=== PATIENT | female | born 1965 | race Caucasian/White ===

== ENCOUNTER → 2016-08-20 | Outpatient (CLI) | payer MEDICARE, OTHER ==
--- NOTE | 2016-08-20 09:36 | CT ---
EXAMINATION TYPE: CT ankle RT wo con DATE OF EXAM: 08/20/2016 8:19 AM COMPARISON: NONE HISTORY: Displaced trimalleolar fx of Rt lower leg CT DLP: 255.3 mGycm Automated exposure control for dose reduction was used. FINDINGS: As per the patient history a trimalleolar ankle fracture is seen. The medial malleolus fracture is mi ldly comminuted with a single subcentimeter second fragment. The larger dominant index fragment of th e medial malleolus is displaced 7 mm medially into the tibiotalar joint. The talus is subluxed latera lly within the tibiotalar joint without evidence of laila dislocation. The distal fibular fracture is also comminuted and only minimally displaced with the distal fracture fragment displaced 4 mm dorsal ly and 1 mm laterally. Few osseous fragments are present at the anterior lateral tibiotalar joint. Th e posterior malleolus fracture is also mildly comminuted and only minimally displaced with the fractu re fragment displaced superiorly approximately 4 mm. No calcaneal fractures are evident. Likely sclerotic bone island is seen within the anterior talus. E xtensive subcutaneous edema is seen around the ankle joint and midfoot as well as a small joint effus ion. There is a small supra calcaneal heel spur. Achilles tendon is intact. Tendons of the lateral, m edial, posterior, and anterior compartment appear intact although MRI is better suited for analysis. IMPRESSION: 1. COMMINUTED TRIMALLEOLAR ANKLE FRACTURE WITH LATERAL SUBLUXATION OF THE TALUS . 2. NO ADDITIONAL FRACTURE IS SEEN. 3. EXTENSIVE SOFT TISSUE SWELLING AROUND THE ANKLE JOINT AND MIDFOOT WITH SMALL JOINT EFFUSION. THE T ENDONS WITHIN THE ANTERIOR, MEDIAL, POSTERIOR, AND LATERAL COMPARTMENT APPEAR GROSSLY INTACT ALTHOUGH MRI WOULD BE BETTER SUITED FOR ANALYSIS.
== END | disposition home or self-care (01) ==
LOC: RADCTMAIN 07:37
PROVIDERS: ATTEND Orthopaedic Surgery
DX: S82.851A Displaced trimalleolar fracture of right lower leg, initial encounter for closed fracture (principal); S93.01XA Subluxation of right ankle joint, initial encounter; M25.471 Effusion, right ankle; M79.89 Other specified soft tissue disorders

== ENCOUNTER 2016-08-27 13:50 | Day surgery (SDC) | payer MEDICARE, OTHER ==
[2016-08-26 10:29] VITALS: BMI 28.0
[~2016-08-27 13:50] MED LIST: CLINDAMYCIN 900 MG in DEXTROSE 5% IN WATER 50 ML IVPB ONE; DEXAMETHASONE SOD PHOSPHATE 10 MG/ML 1 ML VIAL IV ONE; HYDROmorphone 1 MG/ML 1 ML SYRINGE IVP PRN; LACTATED RINGERS 1,000 ML IV SCH; MIDAZOLAM 2 MG/2 ML VIAL IV PRN; ONDANSETRON 4 MG/2 ML VIAL IVP ONE; SCOPOLAMINE 1.5MG/72HR PATCH TRANSDERM ONE
[2016-08-27] MEDS ORDERED: LIDOCAINE 1% 20 ML VIAL (10MG/ML) FOR IV START INTRADERMA ONE (14:23)
[2016-08-27 14:37] LABS: Glucose,Whole Blood 93 mg/dL (75-99)
[2016-08-27 14:44] LABS: Basophils # (A) 0.1 k/uL (0-0.2); Basophils % (A) 1 %; CH 32.7; CHCM 32.8; Eosinophils # (A) 0.5 k/uL (0-0.7); Eosinophils % (A) 5 %; HCT 39.1 % (34.0-46.0); HDW 2.18; HGB 13.1 gm/dL (11.4-16.0); Luc # (Auto) 0.11; Luc % (Auto) 1; Lymphocytes # (A) 1.7 k/uL (1.0-4.8); Lymphocytes % (A) 17 %; MCH 33.6 pg (25.0-35.0); MCHC 33.5 g/dL (31.0-37.0); MCV 100.1 fL (80.0-100.0); Mean Platelet Volume 7.3; Monocytes # (A) 0.3 k/uL (0-1.0); Monocytes % (A) 3 %; Neutrophils % (A) 72 %; RDW 13.1 % (11.5-15.5); WBC 9.7 k/uL (3.8-10.6); WBC (Perox) 9.81
[2016-08-27] MEDS: fentaNYL (PF) 50 MCG/ML 2 ML AMP IV ONE ×2 (15:45→16:41)
[2016-08-27] MEDS ORDERED: PROPOFOL 10 MG/ML 20 ML VIAL IV ONE (17:36)
[2016-08-27] MEDS ORDERED: KETAMINE 10 MG/ML 20 ML VIAL ONE (17:36)
[2016-08-27] MEDS ORDERED: HYDROmorphone (PF) 1 MG/ML ONE (17:36)
[2016-08-27] MEDS ORDERED: fentaNYL (PF) 50 MCG/ML 2 ML AMP ONE (17:36)
[2016-08-27] MEDS ORDERED: MIDAZOLAM 2 MG/2 ML VIAL ONE (17:36)
[2016-08-27] MEDS ORDERED: LIDOCAINE 1% INJ 10MG/ML (20 ML MDV) ONE (17:36)
[2016-08-27] MEDS ORDERED: CLINDAMYCIN 600 MG in SODIUM CHLORIDE 0.9% 1,000 ML IRRIGATION ONE (18:08)
[2016-08-27] MEDS ORDERED: LACTATED RINGERS 1,000 ML IV ONE (18:27)
[2016-08-27] MEDS ORDERED: NALOXONE 0.4 MG/ML 1 ML VIAL IV PRN (19:34)
[2016-08-27] MEDS ORDERED: HYDROmorphone 1 MG/ML 1 ML SYRINGE IVP PRN (19:34)
[2016-08-27] MEDS ORDERED: DIAZEPAM 5 MG TAB PO PRN (19:34)
[2016-08-27] MEDS ORDERED: MAGNESIUM HYDROXIDE 2,400 MG/10 ML CUP PO PRN (19:34)
[2016-08-27] MEDS ORDERED: oxyCODONE-APAP 10-325MG 1 EACH TAB PO PRN (19:37)
[2016-08-27 19:39] VITALS: RESP 16; TEMP 97.1
--- NOTE | 2016-08-27 19:58 | P.OP ---
Date of Procedure: 08/27/16 Preoperative Diagnosis: 1. Closed right trimalleolar ankle fracture 2. Current every day cigarette smoker Postoperative Diagnosis: Same Procedure(s) Performed: 1. Open reduction and internal fixation of right trimalleolar ankle fracture ( open reduction and internal fixation of lateral and medial malleolus, nonoperative management of posterior malleolus fracture) 2. Manual application of joint stress by physician for radiography, right ankle Anesthesia: MERA Surgeon: Donald Gordon Sports Physiologist #1: Susie Vo Estimated Blood Loss (ml): 50 IV fluids (ml): 1,000 Pathology: none sent Condition: stable Disposition: PACU Indications for Procedure: The patient is a 51-year-old female with a medical history significant for smoking a pack of cigarettes a day. She sustained a fall just about 2 weeks ago resulting in a closed right trimalleolar ankle fracture. She presented to my office and was placed in a splint. A computed tomography scan was ordered to assess the posterior malleolus. We discussed treatment of unstable ankle fractures with surgery. I recommended operative fixation of her medial and lateral malleolus. We discussed potential risks application of surgery including but not limited to risks from anesthesia, risk of superficial infection, risk of deep infection, risk of delayed wound healing, risk of wound necrosis, risk of damage to local sensory nerves resulting in temporary or permanent numbness, risk of complex regional pain syndrome, risk of fracture nonunion, risk of fracture malunion, risk of displacement of her hardware postoperatively, risk of symptomatic hardware, risk of chronic pain, risk of chronic swelling, risk of need for further surgery, risk of posterior medical arthritis, risk of generalized to satisfaction of surgery and possibly loss of life or limb. The patient understands that she is at a much higher risk of having a complication due to her current smoking. She voiced her understanding this and signed a consent form to go forward with surgery. Description of Procedure: The patient was identified in preoperative holding and the correct right leg was marked with my initials. I reviewed the consent form with the patient and her family. All their questions were answered. In preoperative holding and popliteal and saphenous block was placed by anesthesia. She was then brought back to the operating room and transferred on the operating room table. An anesthetic was administered. She was positioned on the operating table and a tourniquet was applied the proximal aspect of the right thigh. Her left leg was secured to the operating room table with bone foam and tape. A bone foam bump was placed under her right buttock. A ramp was placed under her right leg. The patient's right leg was then prepped and draped in the standard sterile fashion. Prior to starting surgery timeout was performed identifying the correct operative extremity and procedure. Preoperative antibiotics were administered. The patient's leg was then elevated exsanguinated with an Esmarch bandage and the tourniquet was inflated to 250 mmHg. A longitudinal incision was marked out with a marking pen centered over the lateral malleolus. Skin incision was made to 15 blade scalpel. Dissection was carried down carefully to the subcu tissue and his tissue with tenotomy scissors to the periosteum overlying the distal fibula. The periosteum was raised off lateral aspect of the distal fibula and the fracture site was exposed. Consolidating hematoma and early callus was sharply debrided. Once the fracture site was debrided and gentle reduction was performed using longitudinal traction and direct manipulation of the distal fragment. Once the fracture was reduced the reduction was held with a akrfr-ot-nsets reduction clamp. On inspection the posterior spike keyed into the proximal fragment and the fibula appeared to be anatomically reduced. C-arm was brought in to verify the reduction. The fibula appeared to be out to length and there was no widening of the medial clear space. A 2.7 mm drill bit was used to create a gliding hole in the anterior cortex the proximal fragment a 2.0 mm drill bit was used to generate a threaded hole in the posterior cortex the distal fragment. A fully threaded 2.7 mm lag screws placed across the fracture generating excellent compression. The wsxjy-hm-hxwne reduction clamp was removed and the reduction held. A precontoured locking fibular plate was then placed over the lateral aspect of the fibula and its position was verified using fluoroscopy. Once the right was a neck supple position a 35 nonlocking screws placed just proximal to the fracture bring the plate down to bone. I then placed a 35 screw in the most proximal hole of the plate to make sure the plate was centered on the fibula. I then placed a 2.7 mm screw in the most distal hole of the plate to help bring the plate down to bone distally. I then proceeded to place 4 locking screws through the distal plate into the distal fragment. A third 3.5 mm screw was placed proximal to the fracture. C-arm was brought in to verify position of the hardware. Attention was then turned to the medial malleolus. A longitudinal incision was made centered over the medial malleolus Pritzker incision made a 50 but scalpel dissection was carried down carefully through subcutaneous tissue to the periosteum over the medial malleolus. Periosteum was incised longitudinally in line with the skin incision. The fracture site was sharply debrided of early callus and hematoma. The joint was looked open and visualized. There is a small osteochondral fragment in the joint that was removed. Once the fracture site was adequately debrided a 2.0 mm drill bit was used to create a unicortical hole in the metaphysis of the distal tibia. 1 corky of a point-to- point reduction clamp was placed in this hole in the second corky was centered on the tip of the medial malleolus. I gently reduced and manipulated the medial malleolus fragment until it appeared anatomically reduced. C-arm fluoroscopy was brought in to verify position of the medial malleolus. Once I was happy with the position of the medial malleolus a 2.5 mm drill bit was used to create paths for 3.5 mm screws anterior and posterior to the corky of the reduction clamp. Fully threaded 3.5 mm cortical screws measuring 55 mm were placed. This generated excellent compression across the medial malleolus fragment. When the hjkjk-cv-wvyjf reduction clamp was removed the reduction held. The medial malleolar fragment appeared to enciso in nicely to the metaphysis. At this point C-arm was brought in area on the mortise view the fibula appeared to be out to length and the medial malleolus appeared to be reduced. The hardware was intra-articular. There is no widening of the medial clear space. A manual external rotation stress test was performed. There is no widening of the medial clear space or widening of the syndesmosis. I interpreted this as a stable syndesmosis not requiring a syndesmotic screw. A true talar dome overlap lateral x-ray was obtained. The talus appeared to be centered under the tibia with no posterior subluxation. The posterior malleolus fragment was minimally displaced. The hardware appeared to be in satisfactory position. Both wounds were then copiously irrigated. The periosteum over the fibular plate was closed with a running 0 Vicryl suture. The deep subcu was reapproximated using 2-0 Vicryl the skin was closed using 3-0 nylon horizontal mattress stitches. The deep subcu over the medial malleolus was closed with 2- 0 Vicryl and the skin was closed with 3-0 nylon horizontal mattress stitches. Once the incisions were closer verified that all cement sponge and sharp counts were correct. Round quarter stretchy Steri-Strips were placed between the stitches. A sterile dressing consisting of Betadine soaked Adaptic, 4 x 4, web roll, and ABDs was applied. The drapes were taken down and a well-padded bulky [place] type splint was applied. The patient was then awoken from her anesthetic transferred to her rproctor and brought to PACU. The procedure well. Susie Vo PA-C was required is a skilled assistant bookkeeper for patient positioning, surgical approach, retracting, fracture reduction, placement of hardware, closure of surgical wounds, and application of splint.
[2016-08-27] MEDS ORDERED: oxyCODONE-APAP 7.5-325MG 1 EACH TAB PO ONE (20:24)
[2016-08-27 20:36] VITALS: BP 136/80; PULSE 83
[2016-08-27] MEDS ORDERED: SENNOSIDES-DOCUSATE SODIUM 1 EACH TAB PO SCH (21:00)
[2016-08-27] MEDS ORDERED: CALCIUM CARBONATE 500 MG CHEWABLE PO SCH (22:00)
[2016-08-28] MEDS ORDERED: ceFAZolin 2 GM in SODIUM CHLORIDE 0.9% 100 ML IVPB SCH ×2
--- NOTE | 2016-08-28 07:14 | XR ---
EXAMINATION TYPE: XR ankle limited RT DATE OF EXAM: 08/27/2016 7:11 PM HISTORY: ORIF right ankle TECHNIQUE: Fluoroscopy ORIF right ankle, 93 sec fluoro, 5 paper films, .
[2016-08-28] MEDS ORDERED: ENOXAPARIN 40 MG/0.4 ML SYRINGE SQ SCH (09:00)
[2016-08-28] MEDS ORDERED: CHOLECALCIFEROL 1,000 UNIT TAB PO SCH (12:00)
[2016-08-28] MEDS ORDERED: MULTIVITAMINS, THERA 1 EACH TAB PO SCH (12:00)
--- NOTE | 2016-08-29 21:00 | FL ---
EXAMINATION TYPE: FL guidance operating room DATE OF EXAM: 08/27/2016 7:12 PM FLUOROSCOPY Fluoroscopy time of 93 seconds during right ankle ORIF. 5 Image/s document/s the procedure.
== END 2016-08-27 20:53 | disposition home or self-care (01) ==
LOC: OR 13:50
PROVIDERS: ATTEND Orthopaedic Surgery
DX: S82.851A Displaced trimalleolar fracture of right lower leg, initial encounter for closed fracture (principal); W01.0XXA Fall on same level from slipping, tripping and stumbling without subsequent striking against object, initial encounter; I10 Essential (primary) hypertension; J43.9 Emphysema, unspecified; J45.909 Unspecified asthma, uncomplicated; F17.210 Nicotine dependence, cigarettes, uncomplicated; Z79.891 Long term (current) use of opiate analgesic; Z79.899 Other long term (current) drug therapy; Z88.0 Allergy status to penicillin; Z91.030 Bee allergy status
CPT/HCPCS: 85025; 73600; 27822; C1713; J2250; J1100; J2405; J2001; J3010; J1170; J2704

== ENCOUNTER 2017-06-03 10:42 | Day surgery (SDC) | payer MEDICARE, OTHER ==
[2017-05-30 14:34] VITALS: BMI 27.3
[~2017-06-03 10:42] MED LIST changes: -HYDROmorphone 1 MG/ML 1 ML SYRINGE IVP PRN; -SCOPOLAMINE 1.5MG/72HR PATCH TRANSDERM ONE
[2017-06-03 11:38] LABS: Glucose,Whole Blood 87 mg/dL (75-99)
[2017-06-03] MEDS ORDERED: LIDOCAINE 1% 20 ML VIAL (10MG/ML) FOR IV START INTRADERMA ONE (11:45)
[2017-06-03] MEDS ORDERED: PROPOFOL 10 MG/ML 20 ML VIAL IV ONE (12:51)
[2017-06-03] MEDS ORDERED: MIDAZOLAM 2 MG/2 ML VIAL ONE (12:51)
[2017-06-03] MEDS ORDERED: LIDOCAINE 1% INJ 10MG/ML (20 ML MDV) ONE (12:51)
[2017-06-03] MEDS ORDERED: HYDROmorphone (PF) 1 MG/ML ONE (12:51)
[2017-06-03] MEDS ORDERED: SUCCINYLCHOLINE CHLORIDE 100 MG/5 ML SYR IV ONE (12:51)
[2017-06-03] MEDS ORDERED: fentaNYL (PF) 50 MCG/ML 2 ML AMP ONE (12:51)
[2017-06-03] MEDS ORDERED: BUPIVACAINE (PF) 0.5% 30 ML VIAL SQ ONE ×2 (13:33)
--- NOTE | 2017-06-03 13:46 | P.OP ---
Date of Procedure: 06/03/17 Preoperative Diagnosis: 1. Right ankle fracture status post open reduction and internal fixation 2. Symptomatic hardware right ankle 3. Current every day cigarette smoker Postoperative Diagnosis: same Procedure(s) Performed: Hardware removal right ankle Anesthesia: MERA Surgeon: Donald Gordon Janitorial Maintenance Worker #1: Yuval Nelson Estimated Blood Loss (ml): 10 IV fluids (ml): 500 Pathology: none sent Condition: stable Disposition: PACU Indications for Procedure: The patient is a 52-year-old female with a medical history significant for smoking. She previously sustained an ankle fracture and underwent open reduction internal fixation. She went on to develop some dramatic hardware following healing of her fracture. She and her requested hardware removal. I reviewed discussed potential risks and complications of elective hardware removal including but not limited to risk of anesthesia, superficial infection, deep infection, delayed wound healing, wound necrosis, damage to local blood ulcer nerves, intraoperative fracture, postoperative fracture, postoperative displacement, postoperative ankle instability, posterior medical arthritis, worsening pain, chronic pain, chronic swelling, generalized to satisfaction with surgery, need for further surgery, DVT, PE, possible loss of life or limb. The patient understands that she is a heightened risk having a complication due to her current cigarette smoking. She provided her verbal and written consent to go forward with surgery. Description of Procedure: The patient is independent operative holding and the correct right ankle was marked with my initials. I reviewed the consent form with the patient and her all the questions were answered. The patient was then brought back to the operating room and positioned on an or table. A general anesthetic and preoperative antibiotics were administered. All bony prominences were well- padded. A tourniquet was applied proximal aspect of the right thigh. Preserving surgery timeout was performed identifying the correct patient, operative extremity, and procedure. Leg was elevated, exsanguinated with an Esmarch bandage, and tourniquet was inflated to 250 mmHg. I began by outlining the prior surgical scar over the lateral malleolus skin marker. Skin incision with a 15 blade scalpel and dissected carefully down to the periosteum over the plate which was incised longitudinally in line with the skin incision. The plate was circumferentially exposed and all of the screws were sequentially removed. The plate was carefully removed from the fibula. The lag screw was identified in the anterior cortex of the distal fibula and removed. The screw tracks were curetted. Attention was then turned to the medial malleolus. A stab incision was made directly over the medial malleolus and both screws were identified and removed. Fluoroscopy was brought in and a mortise x-ray verified removal of the hardware and no intraoperative fractures. A manual external rotation stress x-ray was also obtained showing no widening of the medial clear space or syndesmosis. Both wounds were copiously irrigated. The periosteum of the fibula was closed the running 2-0 Vicryl. The deep subcu was reapproximated using 2-0 Vicryl. The skin was closed with 3- 0 nylon horizontal mattress stitches. The deep subcu was closed over the medial malleolus incision with 2-0 Vicryl pinned the skin was closed with 3-0 nylon horizontal mattress stitches. I verified that all instrument sponge and Counts were correct. The tourniquet was let down. 10 mL's of half percent Marcaine was injected around both incisions. A sterile dressing consisting of Adaptic, 4 x 4, and web roll was applied. The drapes were taken down and a clean Felix wrap was applied. The patient was then placed into a tall boot. She was awoken from her anesthetic, transferred to the [facility], [place], and brought to PACU without the procedure well. The patient is going to discharge home as an outpatient. She is to weight-bear as tolerated in a boot for the next 2 weeks. She'll follow-up in 2 weeks. She is going to be treated with aspirin 325 mg twice a day for DVT prophylaxis.
[2017-06-03] MEDS ORDERED: HYDROmorphone 0.5 MG/0.5 ML SYRINGE IVP PRN (13:49)
[2017-06-03] MEDS ORDERED: HYDROcodone/APAP 5-325MG 1 EACH TAB PO PRN (13:49)
[2017-06-03 14:11] VITALS: TEMP 97
[2017-06-03] MEDS ORDERED: diphenhydrAMINE 50 MG/ML 1 ML VIAL IVP ONE (14:14)
[2017-06-03] MEDS: HYDROmorphone 0.5 MG/0.5 ML SYRINGE IVP PRN ×4 (14:18→14:40)
[2017-06-03 14:38] VITALS: RESP 18
[2017-06-03] MEDS ORDERED: MEPERIDINE 50 MG/ML SYRINGE IVP ONE (14:57)
--- NOTE | 2017-06-03 15:34 | XR ---
Limited right ankle HISTORY: Hardware removal 2 intraoperative C-arm images document the procedure
--- NOTE | 2017-06-03 15:34 | FL ---
Fluoroscopy HISTORY: Hardware removal 10 seconds fluoroscopy time supplied to the referring clinician. 2 intraoperative C-arm images docum ent the procedure. See dictated report from orthopedic surgery.
[2017-06-03] MEDS ORDERED: oxyCODONE-APAP 5-325MG 1 EACH TAB PO ONE (15:50)
[2017-06-03 16:13] VITALS: BP 139/81; PULSE 86
== END 2017-06-03 16:56 | disposition home or self-care (01) ==
LOC: OR 10:42
PROVIDERS: ATTEND Orthopaedic Surgery
DX: T84.84XA Pain due to internal orthopedic prosthetic devices, implants and grafts, initial encounter (principal); I10 Essential (primary) hypertension; J45.909 Unspecified asthma, uncomplicated; Z87.891 Personal history of nicotine dependence; Z85.3 Personal history of malignant neoplasm of breast; Z85.43 Personal history of malignant neoplasm of ovary; Z85.038 Personal history of other malignant neoplasm of large intestine; Z79.891 Long term (current) use of opiate analgesic; Z79.51 Long term (current) use of inhaled steroids; Z79.899 Other long term (current) drug therapy; Z79.1 Long term (current) use of non-steroidal anti-inflammatories (NSAID); Z88.0 Allergy status to penicillin; Z91.030 Bee allergy status
CPT/HCPCS: 73600; 20680; J2250; J1200; J1100; J2175; J2405; J2001; J3010; J1170 ×2; J0330; J2704

== ENCOUNTER → 2022-01-08 | Outpatient (CLI) | payer MEDICARE ==
--- NOTE | 2022-01-08 10:05 | MM ---
Reason for Exam: Clinical finding. Indicated Problems: Lump or thickening of the left side (size 20) for 1 Week(s). Patient History: Menarche at age 16. First Full-Term at age 18. Left ovary removed at age 46. Right ovary removed at age 46. Hysterectomy at age 46. Postmenopausal. Patient has history of breast feeding. Breast cancer, bilateral, age 28. Ovarian cancer, age 46. Tissue Density: The breast tissue is heterogeneously dense. This may lower the sensitivity of mammography. Findings: Analyzed By CAD. Benign-appearing bilateral round calcifications within both breasts. No focal abnormality identified within the left breast at the palpable marker. No suspicious cluster microcalcifications or masses. Overall Assessment: Incomplete: need additional imaging evaluation, BI-RAD 0 Management: Diagnostic Breast Ultrasound of the left breast. A clinical breast exam by your physician is recommended on an annual basis and results should be correlated with mammographic findings. This exam should not preclude additional follow-up of suspicious palpable abnormalities. Results were given to the patient verbally at the time of exam. Electronically signed and approved by: Jevon Gr D.O.
--- NOTE | 2022-01-08 10:06 | USB ---
Reason for Exam: Clinical finding. Patient History: Menarche at age 16. First Full-Term at age 18. Left ovary removed at age 46. Right ovary removed at age 46. Hysterectomy at age 46. Postmenopausal. Patient has history of breast feeding. Breast cancer, bilateral, age 28. Ovarian cancer, age 46. Findings: The area of palpable concern of the left breast, the axilla of the left breast and the retroareolar of the left breast were scanned. Limited left breast ultrasound at the lumbar abnormality was obtained radial/antiradial approach at 2:00 7 cm from the nipple. Additional retroareolar and axillary regions were evaluated. No solid or cystic masses are identified.. Overall Assessment: Negative, BI-RAD 1 Management: Screening Mammogram of both breasts in 1 year. A clinical breast exam by your physician is recommended on an annual basis and results should be correlated with mammographic findings. Electronically signed and approved by: Jevon Gr D.O.
== END | disposition home or self-care (01) ==
LOC: RADMAMWWP 08:44
PROVIDERS: ATTEND Family Medicine
DX: N63.21 Unspecified lump in the left breast, upper outer quadrant (principal); Z78.0 Asymptomatic menopausal state; Z85.3 Personal history of malignant neoplasm of breast
CPT/HCPCS: 77066; 76642; G0279; 77062

== ENCOUNTER → 2022-05-19 | Outpatient (CLI) | payer MEDICARE ==
--- NOTE | 2022-05-20 07:15 | XR ---
EXAMINATION TYPE: XR chest 2V DATE OF EXAM: 05/19/2022 4:25 PM COMPARISON: Chest radiographs from 12/12/2014 TECHNIQUE: XR chest 2V Frontal and lateral views of the chest. CLINICAL INDICATION:Female, 57 years old with history of [id number] OTHER CHEST PAIN; FINDINGS: Lungs/Pleura: There is no evidence of pleural effusion, focal consolidation, or pneumothorax. Pulmonary vascularity: Unremarkable. Heart/mediastinum: Cardiomediastinal silhouette is unremarkable. Musculoskeletal: No acute osseous pathology. There is fixation hardware in the lower cervical spine. IMPRESSION: No acute cardiopulmonary disease/process.
== END | disposition home or self-care (01) ==
LOC: RADXRYALE 15:29
PROVIDERS: ATTEND Physician Assistant Medical
DX: R07.89 Other chest pain (principal)
CPT/HCPCS: 71046

== ENCOUNTER → 2022-07-07 | Outpatient (CLI) | payer MEDICARE ==
--- NOTE | 2022-07-08 08:21 | XR ---
EXAMINATION TYPE: XR abdomen 2V DATE OF EXAM: 07/07/2022 CLINICAL DATA: 57-year-old female intermittent left upper quadrant pain, [facility] COMPARISON: None FINDINGS: Lung bases are clear. Cholecystectomy clips. No evidence for free intraperitoneal air. No dilated small bowel or air-fluid levels. Air is present throughout the colon extending distally into the pelvis. No significant stool is seen. No suspicious calcifications. IMPRESSION: 1. No evidence of bowel obstruction or free intraperitoneal air. 2. No significant stool burden.
== END | disposition home or self-care (01) ==
LOC: RADXRYALE 16:56
PROVIDERS: ATTEND Physician Assistant Medical
DX: R10.12 Left upper quadrant pain (principal); R10.84 Generalized abdominal pain
CPT/HCPCS: 74018; 74019